=== PATIENT | male | born 1950 | race American Indian/Alaskan Native ===

== ENCOUNTER 2021-04-18 06:00 | Day surgery (SDC) | payer MEDICARE ==
[2021-04-15 09:51] LABS: Hematocrit 40.8 % (35.5-45.6); Hemoglobin 14.8 gm/dl (11.8-15.2); Mean Corpuscular HGB Conc 36 % (32-34); Mean Corpuscular Volume 95 fl (84-94); Platelet Count 143 K/mm3 (140-440); Red Cell Distribution Width 14.5 % (13.2-15.2)
[2021-04-15 10:09] LABS: Alanine Aminotransferase 14 units/L (7-56); Albumin 2.9 g/dL (3.9-5); BUN/Creatinine Ratio 7; Blood Urea Nitrogen 8 mg/dL (9-20); Calcium 8.9 mg/dL (8.4-10.2); Hemolysis Index 21
--- NOTE | 2021-04-15 10:35 | Anesthesia Consultation ---
Anesthesia Consult and Med Hx Date of service: 04/18/21 - Airway Anesthetic Teeth Evaluation: Dentures (upper and lower) ROM Head & Neck: Adequate Mental/Hyoid Distance: Adequate Mallampati Class: Class III Intubation Access Assessment: Possibly Difficult - Pulmonary Exam CTA: Yes - Cardiac Exam Cardiac Exam: RRR - Pre-Operative Health Status ASA Pre-Surgery Classification: ASA4 Proposed Anesthetic Plan: General - Pulmonary Hx Smoking: Yes (quit 1981) Hx Respiratory Symptoms: No Hx Sleep Apnea: No (DOUGLAS PRE SCREEN HIGH RISK) - Cardiovascular System Hx Hypertension: Yes (noted in chart but patient denies; reports normal BP at all PCP visits) Hx Heart Attack/AMI: No Hx Percutaneous Transluminal Coronary Angioplasty (PTCA): No Hx Cardia Arrhythmia: No - Central Nervous System CVA: No - Endocrine Hx Renal Disease: Yes (remote hx renal failure now resolved) Hx Cirrhosis: Yes (2/2 EtOH) Hx Insulin Dependent Diabetes: No Hx Non-Insulin Dependent Diabetes: No Hx Thyroid Disease: No - Other Systems Hx Alcohol Use: Yes (hx EtOH abuse, currently drinks 2-3 wine coolers/day. 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 Coag studies pending.
[2021-04-15 10:47] LABS: INR 1.21 (0.87-1.13); Partial Thromboplastin Time 32.5 Sec. (24.2-36.6)
[~2021-04-18 06:00] MED LIST: SODIUM CHLORIDE 0.9% 1000 ML 1,000 ML IV SCH
[2021-04-18] MEDS ORDERED: BACTERIOSTATIC SODIUM CHLORIDE 0.9% 30 ML VIAL INFILTRATI ONE (06:18)
[2021-04-18] MEDS ORDERED: ceFAZolin/STERILE WATER 2 GM/20 ML SYRINGE IV NR (07:05)
[2021-04-18] MEDS ORDERED: BUPIVACAINE/PF (0.25%) 2.5 MG/ML 30 ML VIAL INFILTRATI ONE (07:08)
[2021-04-18] MEDS ORDERED: HYDROcodone/ACETAMINOPHEN 5-325 MG TAB PO PRN (07:17)
[2021-04-18] MEDS ORDERED: ONDANSETRON 4 MG/2 ML INJ IV PRN (07:17)
[2021-04-18] MEDS ORDERED: fentaNYL 100 MCG/2 ML INJ IV PRN (07:17)
--- NOTE | 2021-04-18 07:17 | Anesthesia Day of Surgery ---
Anesthesia Day of Surgery - Day of Surgery Patient Examined: Yes Patient H&P Reviewed: Yes Patient is NPO: Yes
[2021-04-18] MEDS ORDERED: propofoL 200 MG/20 ML VIAL IV ONE (07:37)
[2021-04-18] MEDS ORDERED: ONDANSETRON 4 MG/2 ML INJ ONE (07:51)
[2021-04-18] MEDS ORDERED: HYDROmorphone 1 MG/1 ML INJ ONE (07:58)
[2021-04-18] MEDS ORDERED: LIDOCAINE MPF (2%) 20 MG/1 ML VIAL 5 ML ONE (08:00)
[2021-04-18] MEDS ORDERED: SODIUM CHLORIDE 0.9% IRR 1,500 ML BOTTLE IR ONE (08:06)
--- NOTE | 2021-04-18 08:43 | Short Stay Summary ---
Short Stay Documentation Date of service: 04/18/21 - History H&P: obtained from office - Allergies and Medications Current Medications: Allergies No Known Allergies Allergy (Verified 03/16/21 12:55) Home Medications Medication Instructions Recorded Confirmed Last Taken Type Lactulose [Cephulac] 20 gm PO BID 30 Days oral.liqd 08/14/13 04/13/21 08/28/13 Rx Pantoprazole [Protonix TAB] 40 mg PO QDAY #30 tablet 08/14/13 04/13/21 08/28/13 Rx traMADoL [Ultram 50 MG tab] 50 mg PO Q6HR PRN #10 tablet 08/31/14 04/13/21 Unknown Rx Furosemide [Lasix] 40 mg PO DAILY 03/16/21 04/13/21 Unknown History Gabapentin 300 mg PO BID 03/16/21 04/13/21 Unknown History Spironolactone Tab [Aldactone Tab] 25 mg PO QDAY 03/16/21 04/13/21 Unknown History nadoloL [Corgard] 40 mg PO QDAY 03/16/21 04/13/21 Unknown History Aspirin/Caffeine [Bc Powder Packet] 1 each PO PRN PRN 04/15/21 04/15/21 Unknown History Active Medications Hydrocodone Bitart/Acetaminophen (Hydrocodone/Acetaminophen 5-325 Mg Tab) 2 each PO ONCE PRN PRN Reason: Pain, Moderate (4-6) Stop: 04/18/21 23:00 Cefazolin Sodium (Cefazolin/Sterile Water 2 Gm/20 Ml Syringe) 2 gm IV PREOP NR Stop: 04/18/21 18:00 Fentanyl (Fentanyl 100 Mcg/2 Ml Inj) 50 mcg IV Q5MIN PRN PRN Reason: Pain , Severe (7-10) Stop: 04/18/21 23:00 Sodium Chloride (Nacl 0.9% 1000 Ml) 1,000 mls @ 42 mls/hr IV DIRECT YOLANDA Stop: 04/18/21 23:59 Ondansetron HCl (Ondansetron 4 Mg/2 Ml Inj) 4 mg IV ONCE PRN PRN Reason: Nausea And Vomiting Stop: 04/18/21 18:00 - Brief post op/procedure progress note Date of procedure: 04/18/21 Pre-op diagnosis: phimosis Post-op diagnosis: same Procedure: ciric Anesthesia: GETA Surgeon: MAMIE OTT Estimated blood loss: minimal Pathology: list (phimosis) Specimen disposition: to lab Condition: stable - Hospital course Hospital course: bactrim & norco on chart & erx done - Disposition Condition at discharge: Stable Disposition: DC-01 TO HOME OR SELFCARE Short Stay Discharge Plan Follow up with: NORTH DOWELL MD [Primary Care Provider] - 7 Days
--- NOTE | 2021-04-18 09:28 | Operative Report ---
DATE OF SURGERY: 04/18/2021 PREOPERATIVE DIAGNOSIS: Phimosis. POSTOPERATIVE DIAGNOSIS: Phimosis. PROCEDURE: Circumcision. SURGEON: Dwayne Murphy MD ANESTHESIA: General. ESTIMATED BLOOD LOSS: Minimal. FLUIDS: Crystalloid. COMPLICATIONS: No complications. INDICATIONS: This patient is a 70-year-old gentleman seen in the office for difficulty retracting his foreskin for several years despite conservative measures. Risks, benefits, and complications were explained. The patient agreed to proceed with surgical intervention. Medical clearance was by Dr. Mcneill. DESCRIPTION OF PROCEDURE: The patient was taken to the operative suite, placed in a supine position. After adequate general anesthesia, he was prepped and draped in a sterile fashion. The patient had adhesions of his foreskin, it was marked at the level of the coronal ridge. Dorsal and ventral slit was made. Foreskin was circumferentially removed and sent for routine pathologic evaluation. Shaft skin was retracted proximally. Adequate hemostasis was achieved. The proximal and distal shaft skin was reapproximated and closed with 3-0 chromic in an interrupted fashion. Xeroform gauze was placed around the incision. Christa and Coban was also placed for hemostasis. The patient tolerated the procedure well. He was extubated and taken to the recovery room in stable condition. He will go home on Bactrim and [place]. TID: [id number] RECEIPT: [id number] SYLVAIN/MAURICE
[2021-04-18 09:31] VITALS: BP 115/66
--- NOTE | 2021-04-18 09:42 | Post Anesthesia Evaluation ---
- Post Anesthesia Evaluation Patient Participated: Yes Airway Patent: Yes Stable Respiratory Function: Yes Nausea/Vomiting: No Temp > 96.8F: Yes Pain Manageable: Yes Adequeate Hydration: Yes Anesthesia Complications: No
== END 2021-04-18 10:20 | disposition home or self-care (01) ==
LOC: OR 06:00
PROVIDERS: ATTEND Urology
DX: N47.1 Phimosis (principal); Z20.822 Contact with and (suspected) exposure to COVID-19; I10 Essential (primary) hypertension; F10.10 Alcohol abuse, uncomplicated; K21.9 Gastro-esophageal reflux disease without esophagitis; E66.9 Obesity, unspecified; M19.90 Unspecified osteoarthritis, unspecified site; K70.31 Alcoholic cirrhosis of liver with ascites; D64.9 Anemia, unspecified; Z80.42 Family history of malignant neoplasm of prostate; Z79.899 Other long term (current) drug therapy; Z79.82 Long term (current) use of aspirin; Z98.41 Cataract extraction status, right eye; Z98.42 Cataract extraction status, left eye; Z85.46 Personal history of malignant neoplasm of prostate; Z87.891 Personal history of nicotine dependence; Z68.35 Body mass index [BMI] 35.0-35.9, adult
CPT/HCPCS: 36415; 54161; 80053; 85027; 85610; 85730; 88304; J0690; J1170; J2405; J2704; J7030; U0003

== ENCOUNTER 2021-08-08 09:38 | Emergency (ER) | payer MEDICARE ==
[2021-08-08] MEDS ORDERED: fentaNYL 100 MCG/2 ML INJ IV ONE (11:18)
[2021-08-08] MEDS ORDERED: ONDANSETRON 4 MG/2 ML INJ IM ONE (11:18)
--- NOTE | 2021-08-08 11:26 | Emergency Department Report ---
HPI - General Chief Complaint: Fall Time Seen by Provider: 08/08/21 11:09 - HPI HPI: MSE 1 The patient is a 71-year-old male present with chief complaint of pain after fall. Patient states yesterday while standing he was using a device to try to remove his boots when he lost his balance and fell. Patient states he injured his left foot and his right back below the shoulder blade. Patient denies loss of consciousness. Patient denies headache or nausea/vomiting. Patient states he is not taking any blood thinners. Patient currently gives his back and foot pain a score of 10/10 ED Past Medical Hx - Past Medical History Hx Hypertension: Yes (noted in chart but patient denies; reports normal BP at all PCP visits) Hx GERD: Yes Hx Liver Disease: Yes (coagulopathy - RECEIVED FFP IN PAST) Hx Renal Disease: Yes (remote hx renal failure now resolved) Hx Arthritis: Yes (BOTH SHOULDERS) - Surgical History Past Surgical History?: No - Family History Family history: no significant - Social History Smoking Status: Former Smoker (None since 1981) Substance Use Type: None (Denies illicit drug use), Alcohol (Occasional) - Medications Home Medications: Home Medications Medication Instructions Recorded Confirmed Last Taken Type Lactulose [Cephulac] 20 gm PO BID 30 Days oral.liqd 08/14/13 04/13/21 04/17/21 Rx Pantoprazole [Protonix TAB] 40 mg PO QDAY #30 tablet 08/14/13 04/13/21 04/17/21 Rx traMADoL [Ultram 50 MG tab] 50 mg PO Q6HR PRN #10 tablet 08/31/14 04/13/21 04/17/21 Rx Furosemide [Lasix] 40 mg PO DAILY 03/16/21 04/13/21 04/17/21 History Gabapentin 300 mg PO BID 03/16/21 04/13/21 04/17/21 History Spironolactone Tab [Aldactone Tab] 25 mg PO QDAY 03/16/21 04/13/21 04/17/21 History nadoloL [Corgard] 40 mg PO QDAY 03/16/21 04/13/21 04/17/21 History Aspirin/Caffeine [Bc Powder Packet] 1 each PO PRN PRN 04/15/21 04/18/21 1 Week Ago History ~04/11/21 HYDROcodone/APAP 5-325 [Aurora 1 - 2 each PO Q6HR PRN #20 tablet 08/08/21 Unknown Rx 5/325] Ibuprofen [Motrin 800 MG tab] 800 mg PO Q8HR PRN #20 tablet 08/08/21 Unknown Rx ED Review of Systems ROS: Stated complaint: FALL Other details as noted in HPI Constitutional: no symptoms reported Eyes: denies: eye pain ENT: denies: throat pain Respiratory: no symptoms reported Cardiovascular: denies: chest pain Endocrine: no symptoms reported Gastrointestinal: denies: abdominal pain Genitourinary: denies: dysuria Musculoskeletal: back pain, arthralgia Neurological: denies: headache Physical Exam - Physical Exam Physical Exam: GENERAL: The patient is well-developed well-nourished male sitting on chair not appearing to be in acute distress. [] HEENT: Normocephalic. Atraumatic. Extraocular motions are intact. Patient has moist mucous membranes. NECK: Supple. No axial tenderness to palpation, no step-off CHEST/LUNGS: Clear to auscultation. There is no respiratory distress noted. HEART/CARDIOVASCULAR: Regular. There is no tachycardia. There is no gallop rub or murmur. SKIN: There is an approximately palm sized region of ecchymosis to the right back inferior to the scapula. There is no diaphoresis. NEURO: The patient is awake, alert, and oriented. The patient is cooperative. The patient has no focal neurologic deficits. The patient has normal speech. GCS 15 MUSCULOSKELETAL: There is swelling and tenderness to palpation to the lateral aspect of the proximal left foot. There is no tenderness to palpation of the malleoli of the left ankle ED Medical Decision Making - Radiology Data Radiology results: report reviewed (CT head, CT chest, left foot x-ray), image reviewed (CT head, CT chest, left foot x-ray) interpreted by me: Left foot [id number] at the base of the fifth metatarsal [facility] [address] [place] [address] Cat Scan Report Signed Patient: EMIR RIVERA MR#: [id number] : 1950 Acct:[id number] Age/Sex: 71 / M ADM Date: 08/08/21 Loc: ED Attending Dr: Ordering Physician: ROWENA DRAKE MD Date of Service: 08/08/21 Procedure(s): CT chest wo con Accession Number(s): [id number] cc: ROWENA DRAKE MD CT CHEST WITHOUT IV CONTRAST INDICATION: Right posterior rib pain after fall. COMPARISON: None available. TECHNIQUE: All CT scans at this location are performed using CT dose reduction for ALARA by means of automated exposure control. Axial CT images were obtained through the chest. FINDINGS: Upper Abdomen: The liver has a cirrhotic configuration. Within the posterior right lobe there is a 1.1 cm hypodensity with incomplete peripheral calcification. Cholelithiasis is noted. Varices are noted. Skeletal System: There is a minima lly displaced posterior lateral right seventh rib fracture Chest: Great Vessels: No acute abnormality. Heart: Normal. Mediastinum Viji: No significant abnormality. Lungs: No acute air space or interstitial disease. Pleura: No significant pleural effusion. No pneumothorax. Additional Findings: None. IMPRESSION: 1. There is a minimally displaced posterior lateral right seventh rib fracture. Otherwise, given noncontrast technique, no acute traumatic findings. 2. The liver has a cirrhotic configuration and varices are noted. There is a partially peripherally calcified 1.1 cm hypodensity in the posterior right hepatic lobe which could be a calcified cyst. 3. Cholelithiasis. Signer Name: Demarco Pickard MD Signed: 08/08/2021 12:30 PM Workstation Name: [id number] Transcribed By: Dictated By: Demarco Pickard MD Electronically Authenticated By: Demarco Pickard MD Signed Date/Time: 08/08/21 1230 DD/ 1225 TD/TT: Print Cancel [facility] [address] [place] [address] Cat Scan Report Signed Patient: EMIR RIVERA MR#: [id number] : 1950 Acct:[id number] Age/Sex: 71 / M ADM Date: 08/08/21 Loc: ED [facility] Dr: Ordering Physician: ROWENA DRAKE MD Date of Service: 08/08/21 Procedure(s): CT head/brain wo con Accession Number(s): [id number] cc: ROWENA DRAKE MD CT head/brain wo con INDICATION / CLINICAL INFORMATION: 71 years Male; Fall, history of coagulopathy. TECHNIQUE: Routine CT head without contrast. All CT scans at this location are performed using CT dose reduction for ALARA by means of automated exposure control. COMPARISON: None. FINDINGS: BRAIN / INTRACRANIAL CONTENTS: There is mild cerebral white matter disease most consistent with microvascular angiopathy. There appears be small lacunar infarct along the head of the right caudate which is of indeterminate age though would appear chronic. There is mild cerebral atrophy. The ventricular system is correspondingly appropriate in size and configuration. There is no clear CT evidence of acute intracranial hemorrhage or significant mass effect. ORBITS: No significant abnormality of visualized orbits. SINUSES / MASTOIDS: No significant abnormality in the visualized paranasal sinuses or mastoid air cells. CRANIOCERVICAL JUNCTION: No significant abnormality. ADDITIONAL FINDINGS: None. IMPRESSION: 1. There is mild microvascular angiopathy and cerebral atrophy as described without CT evidence of acute intracranial hemorrhage. Signer Name: Jose Muñiz MD Signed: 08/08/2021 12:30 PM Workstation Name: [id number] Transcribed By: MR Dictated By: Jose Muñiz MD Electronically Authenticated By: Jose Muñiz MD Signed Date/Time: 08/08/21 1230 DD/ 1225 TD/TT: Print Cancel [facility] [address] [place] [address] XRay Report Signed Patient: EMIR RIVERA MR#: [id number] : 1950 Acct:[id number] Age/Sex: 71 / M ADM Date: 08/08/21 Loc: ED Attending Dr: Ordering Physician: ROWENA DRAKE MD Date of Service: 08/08/21 Procedure(s): XR foot 2V LT Accession Number(s): [id number] cc: ROWENA DRAKE MD Fluoro Time In Minutes: LEFT FOOT 2 VIEWS INDICATION: Pain after fall. COMPARISON: None. IMPRESSION: There is borderline bone mineralization. Chronic healed fractures of the distal fourth and fifth metatarsals are suspected. There is suspicion for a nondisplaced fracture near the base of the fifth metatarsal which appears acute. Mild diffuse osteoarthritic changes are noted. Small plantar spur. Signer Name: Darshan Nunez Jr, MD Signed: 08/08/2021 11:59 AM Workstation Name: [id number] Transcribed By: TTR Dictated By: DARSHAN NUNEZ JR, MD Electronically Authenticated By: DARSHAN NUNEZ JR, MD Signed Date/Time: 08/08/211158 DD/ 57 TD/TT: Print Cancel - Medical Decision Making Patient counseled on incentive spirometry - Differential Diagnosis Rib fracture, rib contusion, closed head injury, foot fracture, foot contus Critical care attestation.: If time is entered above; I have spent that time in minutes in the direct care of this critically ill patient, excluding procedure time. ED Disposition Clinical Impression: Nondisplaced fracture of fifth left metatarsal bone, Right rib fracture Disposition: HOME / SELF CARE / HOMELESS Is pt being admited?: No Does the pt Need Aspirin: No Condition: Stable Instructions: Rib Fracture, [id number], Metatarsal Fracture Additional Instructions: Return to the emergency department should you develop worsening symptoms, inability to tolerate food or liquids, high fever or any other concerns Prescriptions: Ibuprofen [Motrin 800 MG tab] 800 mg PO Q8HR PRN #20 tablet PRN Reason: Pain, Moderate (4-6) HYDROcodone/APAP 5-325 [Aurora 5/325] 1 - 2 each PO Q6HR PRN #20 tablet PRN Reason: Pain Referrals: CRESENCIO DUTTON MD [Staff Physician] - 3-5 Days (Dr. Dutton is an orthopedic surgeon. Please follow-up with him for further evaluation) Time of Disposition: 12:47
--- NOTE | 2021-08-08 12:04 | XRay Report ---
LEFT FOOT 2 VIEWS INDICATION: Pain after fall. COMPARISON: None. IMPRESSION: There is borderline bone mineralization. Chronic healed fractures of the distal fourth a nd fifth metatarsals are suspected. There is suspicion for a nondisplaced fracture near the base of t he fifth metatarsal which appears acute. Mild diffuse osteoarthritic changes are noted. Small plantar spur. Signer Name: Darshan Nunez Jr, MD Signed: 08/08/2021 11:59 AM Workstation Name: [id number]
--- NOTE | 2021-08-08 12:34 | Cat Scan Report ---
CT head/brain wo con INDICATION / CLINICAL INFORMATION: 71 years Male; Fall, history of coagulopathy. TECHNIQUE: Routine CT head without contrast. All CT scans at this location are performed using CT dos e reduction for ALARA by means of automated exposure control. COMPARISON: None. FINDINGS: BRAIN / INTRACRANIAL CONTENTS: There is mild cerebral white matter disease most consistent with micro vascular angiopathy. There appears be small lacunar infarct along the head of the right caudate which is of indeterminate age though would appear chronic. There is mild cerebral atrophy. The ventricular system is correspondingly appropriate in size and con figuration. There is no clear CT evidence of acute intracranial hemorrhage or significant mass effect . ORBITS: No significant abnormality of visualized orbits. SINUSES / MASTOIDS: No significant abnormality in the visualized paranasal sinuses or mastoid air darrius ls. CRANIOCERVICAL JUNCTION: No significant abnormality. ADDITIONAL FINDINGS: None. IMPRESSION: 1. There is mild microvascular angiopathy and cerebral atrophy as described without CT evidence of ac rosario intracranial hemorrhage. Signer Name: Jose Muñiz MD Signed: 08/08/2021 12:30 PM Workstation Name: [id number]
--- NOTE | 2021-08-08 12:35 | Cat Scan Report ---
CT CHEST WITHOUT IV CONTRAST INDICATION: Right posterior rib pain after fall. COMPARISON: None available. TECHNIQUE: All CT scans at this location are performed using CT dose reduction for ALARA by means of automated e xposure control. Axial CT images were obtained through the chest. FINDINGS: Upper Abdomen: The liver has a cirrhotic configuration. Within the posterior right lobe there is a 1. 1 cm hypodensity with incomplete peripheral calcification. Cholelithiasis is noted. Varices are noted . Skeletal System: There is a minimally displaced posterior lateral right seventh rib fracture Chest: Great Vessels: No acute abnormality. Heart: Normal. Mediastinum & Viji: No significant abnormality. Lungs: No acute air space or interstitial disease. Pleura: No significant pleural effusion. No pneumothorax. Additional Findings: None. IMPRESSION: 1. There is a minimally displaced posterior lateral right seventh rib fracture. Otherwise, given nonc ontrast technique, no acute traumatic findings. 2. The liver has a cirrhotic configuration and varices are noted. There is a partially peripherally c alcified 1.1 cm hypodensity in the posterior right hepatic lobe which could be a calcified cyst. 3. Cholelithiasis. Signer Name: eDmarco Pickard MD Signed: 08/08/2021 12:30 PM Workstation Name: [id number]
[2021-08-08 13:14] VITALS: BP 138/81
== END 2021-08-08 13:49 | disposition home or self-care (01) ==
LOC: ED 09:38
DX: S92.355A Nondisplaced fracture of fifth metatarsal bone, left foot, initial encounter for closed fracture (principal); S22.31XA Fracture of one rib, right side, initial encounter for closed fracture; K76.9 Liver disease, unspecified; I10 Essential (primary) hypertension; M19.90 Unspecified osteoarthritis, unspecified site; Z87.891 Personal history of nicotine dependence; W19.XXXA Unspecified fall, initial encounter; Y93.89 Activity, other specified; Y92.89 Other specified places as the place of occurrence of the external cause; Y99.8 Other external cause status
CPT/HCPCS: 70450; 71250; 73620; 96372; 96374; 99284; J2405; J3010

== ENCOUNTER 2022-06-22 11:30 | Day surgery (SDC) | payer MEDICARE ==
[2022-06-22] MEDS ORDERED: LACTATED RINGERS 1,000 ML ONE (12:34)
[2022-06-22 13:07] LABS: Hemoglobin 10.6 gm/dl (11.8-15.2); Mean Corpuscular HGB Conc 34 % (32-34); Mean Corpuscular Volume 92 fl (84-94); Platelet Count 124 K/mm3 (140-440); Red Blood Count 3.38 M/mm3 (3.65-5.03); Red Cell Distribution Width 19.6 % (13.2-15.2)
[2022-06-22 13:11] LABS: Alanine Aminotransferase 14 units/L (7-56); Albumin 2.3 g/dL (3.9-5); BUN/Creatinine Ratio 9; Blood Urea Nitrogen 8 mg/dL (9-20); Calcium 8.5 mg/dL (8.4-10.2); Hemolysis Index 19; INR 1.6 (0.87-1.13); Partial Thromboplastin Time 41.1 Sec. (24.2-36.6)
--- NOTE | 2022-06-22 13:15 | Anesthesia Day of Surgery ---
Anesthesia Day of Surgery - Day of Surgery Patient Examined: Yes Patient H&P Reviewed: Yes Patient is NPO: Yes
--- NOTE | 2022-06-22 13:15 | Anesthesia Consultation ---
Anesthesia Consult and Med Hx Date of service: 06/22/22 - Airway Anesthetic Teeth Evaluation: Dentures (upper and lower) ROM Head & Neck: Adequate Mental/Hyoid Distance: Adequate Mallampati Class: Class III Intubation Access Assessment: Possibly Difficult (previous LMA 3) - Pre-Operative Health Status ASA Pre-Surgery Classification: ASA4 Proposed Anesthetic Plan: General - Pulmonary Hx Smoking: Yes (remote smoking hx) Hx Respiratory Symptoms: No (asymptomatic COVID infection 1 month ago) - Cardiovascular System Hx Hypertension: No Hx Heart Attack/AMI: No - Central Nervous System CVA: No - Endocrine Hx Renal Disease: No Hx Cirrhosis: Yes (2/2 EtOH) Hx Insulin Dependent Diabetes: No Hx Non-Insulin Dependent Diabetes: No Hx Thyroid Disease: No - Hematic Hx Anemia: Yes - Other Systems Hx Alcohol Use: No (hx EtOH abuse, currently 2-3 drinks per week) Hx Cancer: Yes (hx prostate ca) Hx Obesity: Yes (BMI 33) - Additional Comments Anesthesia Medical History Comments: No hx anesthetic complications.
[2022-06-22] MEDS ORDERED: fentaNYL 100 MCG/2 ML INJ IV PRN (13:16)
[2022-06-22] MEDS ORDERED: HYDROcodone/ACETAMINOPHEN 5-325 MG TAB PO PRN (13:16)
[2022-06-22] MEDS ORDERED: SODIUM CHLORIDE 0.9% 1000 ML 1,000 ML IV SCH (13:30)
[2022-06-22] MEDS ORDERED: ceFAZolin/STERILE WATER 2 GM/20 ML SYRINGE IV NR (15:00)
[2022-06-22] MEDS ORDERED: MIDAZOLAM 2 MG/2 ML INJ IV NR (15:00)
[2022-06-22] MEDS ORDERED: propofoL 200 MG/20 ML VIAL IV ONE (15:39)
[2022-06-22] MEDS ORDERED: LIDOCAINE MPF (2%) 20 MG/1 ML VIAL 5 ML ONE (15:39)
[2022-06-22] MEDS ORDERED: HYDROmorphone 0.5 MG/0.5 ML INJ ONE (15:39)
[2022-06-22] MEDS ORDERED: SODIUM CHLORIDE 0.9% IRRIG SOLN 2000 ML IR ONE (16:21)
[2022-06-22] MEDS ORDERED: IOHEXOL 300 MG/ML 50ML IV ONE (16:22)
--- NOTE | 2022-06-22 16:41 | Short Stay Summary ---
Short Stay Documentation Date of service: 06/22/22 - History H&P: obtained from office - Allergies and Medications Current Medications: Allergies No Known Allergies Allergy (Verified 08/08/21 09:39) Home Medications Medication Instructions Recorded Confirmed Last Taken Type Lactulose [Cephulac] 20 gm PO BID 30 Days oral.liqd 08/14/13 06/19/22 04/17/21 Rx Gabapentin 300 mg PO BID 03/16/21 06/19/22 04/17/21 History Albuterol Mdi (or & Nicu Only) 1 dose INHALATION PRN PRN 06/19/22 06/19/22 Unknown History [ProAir HFA Inhaler] Furosemide [Lasix] 40 mg PO DAILY 06/19/22 06/19/22 Unknown History Loratadine [Allergy Relief] 10 mg PO DAILY 06/19/22 06/19/22 Unknown History Multivitamin/Iron/Folic Acid 1 tab PO DAILY 06/19/22 06/19/22 Unknown History [Centrum Adults Tablet] Pantoprazole Sodium 40 mg PO DAILY 06/19/22 06/19/22 Unknown History Spironolactone [Aldactone] 25 mg PO QDAY 06/19/22 06/19/22 Unknown History Tadalafil [Cialis] 20 mg PO PRN PRN 06/19/22 06/19/22 Unknown History nadoloL [Nadolol] 40 mg PO HS 06/19/22 06/19/22 Unknown History Active Medications Hydrocodone Bitart/Acetaminophen (Hydrocodone/Acetaminophen 5-325 Mg Tab) 1 each PO ONCE PRN PRN Reason: Pain, Moderate (4-6) Stop: 06/22/22 23:59 Cefazolin Sodium (Cefazolin/Sterile Water 2 Gm/20 Ml Syringe) 2 gm IV PREOP NR Stop: 07/02/22 23:59 Fentanyl (Fentanyl 100 Mcg/2 Ml Inj) 50 mcg IV Q5MIN PRN PRN Reason: Pain , Severe (7-10) Stop: 06/22/22 23:59 Sodium Chloride (Nacl 0.9% 1000 Ml) 1,000 mls @ 42 mls/hr IV DIRECT YOLANDA Last Admin: 06/22/22 14:20 Dose: 42 mls/hr Midazolam HCl (Midazolam 2 Mg/2 Ml Inj) 2 mg IV PREOP NR Stop: 06/22/22 23:59 Last Admin: 06/22/22 15:10 Dose: 2 mg - Brief post op/procedure progress note Date of procedure: 06/22/22 Pre-op diagnosis: hematuria Post-op diagnosis: other (urethral stricture) Procedure: cysto, urethral dilation, rpgs Anesthesia: GETA Surgeon: MAMIE OTT Pathology: none Condition: stable - Hospital course Hospital course: macrobid & motrin on chart - Disposition Condition at discharge: Stable Disposition: 01 HOME / SELF CARE / HOMELESS Short Stay Discharge Plan Follow up with: NORTH DOWELL MD [Primary Care Provider] - 7 Days
[2022-06-22 18:54] VITALS: BP 144/80
--- NOTE | 2022-06-22 19:55 | Operative Report ---
DATE OF SURGERY: 06/22/2022 PREOPERATIVE DIAGNOSIS: Hematuria. POSTOPERATIVE DIAGNOSES: Hematuria, urethral stricture. PROCEDURES PERFORMED: Cystoscopy, urethral dilatation, bilateral retrograde pyelogram. SURGEON: Dwayne Murphy MD ANESTHESIA: General. ESTIMATED BLOOD LOSS: Minimal. FLUIDS: Crystalloid. COMPLICATIONS: No complications. INDICATIONS: This patient is a 72-year-old gentleman initially seen by Dr. Venegas as far back as 2007 with a diagnosis of prostate cancer. He then presented to me in 2020 with phimosis and erectile dysfunction, requiring circumcision. Now, he has hematuria, presents now for endoscopic evaluation. CT of the abdomen and pelvis was normal except for some degenerative changes of his spine. DESCRIPTION OF PROCEDURE: The patient was taken to the operative suite, placed in a supine position. After adequate general anesthesia, placed in the dorsal lithotomy position, prepped and draped in a sterile fashion. Pancystourethroscopy was performed with a 22-Stateless Storz scope. He had a bulbar stricture, 0.035 Glidewire was placed. Blue dilators were used to dilate up to 22-Stateless. Rigid cystoscopy was performed. His prostate was minimally obstructing. Bladder, no tumors or stones were noted. Both ureteral orifices in normal position. Bilateral retrograde pyelograms were obtained with an 8-Stateless Rhett catheter and 8 mL of contrast. No filling defects or obstruction. Rectal exam was benign. The patient's urethra appeared stable enough to not require Avalos catheter. He was extubated and taken to the recovery room. He will go home on Macrobid and Motrin. TID: [id number] RECEIPT: [id number] [facility]/DARLENE
--- NOTE | 2022-06-23 07:47 | Fluoroscopy Report ---
3 fluoroscopic images submitted Indication: Intraoperative localization Impression: 3 images of the abdomen were submitted for documentation purposes with radiology involve ment. Bilateral retrograde pyelograms. Please refer to the operative note for complete details. Fluoroscopic time: 6 seconds Signer Name: Reji Gasca MD Signed: 06/23/2022 7:43 AM Workstation Name: [id number]
== END 2022-06-22 17:30 | disposition home or self-care (01) ==
LOC: OR 11:30
PROVIDERS: ATTEND Urology
DX: N35.812 Other bulbous urethral stricture, male (principal); R31.9 Hematuria, unspecified; K70.31 Alcoholic cirrhosis of liver with ascites; K21.9 Gastro-esophageal reflux disease without esophagitis; M19.90 Unspecified osteoarthritis, unspecified site; D64.9 Anemia, unspecified; Z79.899 Other long term (current) drug therapy; Z87.891 Personal history of nicotine dependence; Z98.41 Cataract extraction status, right eye; Z98.42 Cataract extraction status, left eye; Z85.46 Personal history of malignant neoplasm of prostate; Z72.89 Other problems related to lifestyle; Z98.890 Other specified postprocedural states; Z80.42 Family history of malignant neoplasm of prostate; Z91.81 History of falling
CPT/HCPCS: 36415; 52281; 74420; 80053; 85027; 85610; 85730; C1726; J0690; J1170; J2250; J2704; J7030; J7120; Q9967